=== PATIENT | male | born 1990 | race Caucasian/White ===

== ENCOUNTER 2022-09-28 19:19 | Emergency (ER) | payer OTHER ==
[~2022-09-28] VITALS: Ht 175.3 cm; Wt 113.4 kg
[~2022-09-28 19:19] MED LIST: ALBU90OI INH; AMOX500 PO; CLAR500 PO; HYDGUAL120 PO; NEOCOLOTSU OT
[2022-09-28 19:45] VITALS: BP 152/106
[2022-09-28] MEDS ORDERED: LOSARTAN POTASS25 M2 PO (22:37)
[2022-09-28] MEDS ORDERED: Prinivil10 MG PO (22:37)
== END 2022-09-28 23:01 | disposition home or self-care (01) ==
LOC: ER 19:19
DX: L05.01 Pilonidal cyst with abscess (principal); F17.220 Nicotine dependence, chewing tobacco, uncomplicated; Z79.899 Other long term (current) drug therapy
CPT/HCPCS: 10080; 99282-25

== ENCOUNTER 2023-01-10 12:30 | Emergency (ER) | payer OTHER ==
[~2023-01-10] VITALS: Ht 175.3 cm; Wt 113.4 kg
[~2023-01-10 12:30] MED LIST changes: +LOSARTAN POTASS25 M2 PO; +Prinivil10 MG PO
[2023-01-10 12:42] VITALS: BP 170/103
== END 2023-01-10 14:34 | disposition home or self-care (01) ==
LOC: ER 12:30
DX: L05.01 Pilonidal cyst with abscess (principal); I10 Essential (primary) hypertension; Z79.899 Other long term (current) drug therapy
CPT/HCPCS: 10080; 99282-25